=== PATIENT | male | born 1995 | race African-American/Black ===

== ENCOUNTER 2020-12-09 07:30 | Emergency (ER) | payer MEDICAID ==
[~2020-12-09] VITALS: Ht 188 cm; Wt 71.0 kg
[2020-12-09] MEDS ORDERED: OLANZAPINE 5MG TABLET ODT PO STA (08:08)
[2020-12-09 08:40] LABS: BASOPHILS % 0.4 % (0.0-2.0); EOSINOPHILS % 0.2 % (0.0-5.0); HEMATOCRIT. 43.8 % (42.0-52.0); HEMOGLOBIN. 15.6 g/dL (14.0-18.0); LYMPHOCYTES % 22.2 % (20.0-50.0); MEAN CORPUSCULAR HEMOGLOBIN 30.4 pg (28.0-32.0); MEAN CORPUSCULAR VOLUME 85.1 fL (80.0-94.0); MEAN PLATELET VOLUME 8.6 fl (7.4-10.4); MONOCYTES % 6.6 % (2.0-8.0); NEUTROPHILS % 70.6 % (40.0-76.0); PLATELET 195 x1000/uL (130-400); RED BLOOD CELL COUNT 5.14 mill/uL (4.7-6.1); RED CELL DISTRIBUTION WIDTH 13.5 % (11.6-14.6)
[2020-12-09 08:43] LABS: CLARITY URINE CLEAR (CLEAR); COLOR URINE YELLOW (YELLOW); KETONES URINE TRACE (NEGATIVE); LEUKOCYTE ESTERASE URINE NEGATIVE (NEGATIVE); NITRITE URINE NEGATIVE (NEGATIVE); OCCULT BLOOD URINE NEGATIVE (NEGATIVE); PROTEIN URINE NEGATIVE (NEGATIVE); SPECIFIC GRAVITY URINE 1.005 (1.005-1.030); UROBILINOGEN URINE 0.2 E.U./dL (0.2-1.0)
[2020-12-09 08:47] LABS: CHLORIDE 105 mEq/L (98-107)
[2020-12-09 08:57] LABS: ETHANOL BLOOD < 10 mg/dL
[2020-12-09] MEDS ORDERED: ACETAMINOPHEN 325MG TABLET PO ONE (09:00)
[2020-12-09 09:19] LABS: *AMPHETAMINES SCREEN URINE PRESUMTIVE POSITIVE (NEGATIVE); *BARBITURATES SCREEN URINE NEGATIVE (NEGATIVE); *BENZODIAZEPINES SCREEN URINE NEGATIVE (NEGATIVE); *COCAINE SCREEN URINE NEGATIVE (NEGATIVE); CANNABINOID URINE SCREEN PRESUMTIVE POSITIVE (NEGATIVE); PHENCYCLIDINE URINE SCREEN NEGATIVE (NEGATIVE)
[2020-12-09 09:21] LABS: METHADONE URINE SCREEN NEGATIVE (NEGATIVE); OPIATES URINE SCREEN NEGATIVE (NEGATIVE)
[2020-12-09] MEDS ORDERED: LAMOTRIGINE 25MG TABLET PO SCH (14:30)
[2020-12-09] MEDS ORDERED: LAM25 MT (15:06)
[2020-12-09 15:27] VITALS: BP 133/88
== END 2020-12-09 15:28 | disposition home or self-care (01) ==
LOC: ER 07:30
DX: F23 Brief psychotic disorder (principal); F90.9 Attention-deficit hyperactivity disorder, unspecified type
CPT/HCPCS: 36415; 80053; 80305; 80307; 80320; 80329; 81003; 82962; 85025; 99285; G0480